=== PATIENT | male | born 1975 | race Caucasian/White ===

== ENCOUNTER 2022-01-24 00:02 | Emergency (ER) | payer SELFPAY ==
[~2022-01-24] VITALS: Ht 180.3 cm; Wt 122.5 kg
[2022-01-24] MEDS ORDERED: ONDANSETRON HCL INJ 2MG/ML 2ML 2 MG/ML VIAL IV STA (00:13)
[2022-01-24] MEDS ORDERED: Morphine 4mg INJECTION 4 MG/ML INJ IV ONE (00:15)
[2022-01-24] MEDS ORDERED: DICYCLOMINE HCL 20 MG/2 ML VIAL IM ONE (00:15)
[2022-01-24 00:27] LABS: BASOPHILS # (AUTO) 0.1 (0.0-0.1); BASOPHILS % 0.7 % (0.0-1.0); EOSINOPHILS # (AUTO) 0.3 (0.0-0.4); EOSINOPHILS % 3.2 % (0.0-6.0); HEMATOCRIT 44.4 % (38.2-49.6); HEMOGLOBIN 14.9 g/dL (14.0-18.0); LYMPHOCYTES % 31.2 % (18.0-39.1); MEAN CORPUSCULAR HEMOGLOBIN 31.1 pg (28-32); MEAN CORPUSCULAR HGB CONC 33.6 g/dL (31-35); MEAN CORPUSCULAR VOLUME 92.7 fL (81-99); MONOCYTES # (AUTO) 0.8 (0.2-0.8); MONOCYTES % 8.7 % (4.4-11.3); NEUTROPHILS # (AUTO) 5.3 (2.1-6.9); NEUTROPHILS % 55.7 % (38.7-80.0); PLATELET COUNT 206 x10e3/uL (140-360); RED BLOOD COUNT 4.79 x10e6/uL (4.3-5.7); RED CELL DISTRIBUTION WIDTH 12.8 % (11.7-14.4)
[2022-01-24 00:33] LABS: CLARITY,URINE CLEAR (CLEAR); COLOR,URINE YELLOW (YELLOW); KETONES,URINE NEGATIVE (NEGATIVE); LEUKOCYTE ESTERASE ,URINE NEGATIVE (NEGATIVE); NITRITE,URINE NEGATIVE (NEGATIVE); PROTEIN,URINE DIPSTICK NEGATIVE (NEGATIVE); URINE UROBILINOGEN 0.2 mg/dL (0.2 - 1)
[2022-01-24 00:36] LABS: BACTERIA,URINE FEW /HPF; EPITHELIAL CELLS,URINE RARE /LPF; WBC,URINE (MAN) 0-5 /HPF (0-5)
[2022-01-24 00:54] LABS: ALANINE AMINOTRANSFERASE 122 IU/L (0-55); ALBUMIN 3.7 g/dL (3.5-5.0); ALBUMIN/GLOBULIN RATIO 1.2 (0.8-2.0); ALKALINE PHOSPHATASE 75 IU/L (40-150); ANION GAP 15.4 mmol/L (8-16); BLOOD UREA NITROGEN 13 mg/dL (7-26); BUN/CREATININE RATIO 15 (6-25); CALCIUM 8.7 mg/dL (8.4-10.2); CARBON DIOXIDE 23 mmol/L (22-29); CHLORIDE 106 mmol/L (98-107); CREATINE KINASE 185 IU/L (30-200); CREATININE, SERUM 0.87 mg/dL (0.72-1.25); GLUCOSE 130 mg/dL (74-118); POTASSIUM 3.4 mmol/L (3.5-5.1); SODIUM 141 mmol/L (136-145)
[2022-01-24] MEDS ORDERED: HYDROCODON-ACE1 EAC9 PO (01:19)
[2022-01-24] MEDS ORDERED: NAPROSYN500 MG PO (01:19)
[2022-01-24] MEDS ORDERED: ONDANSETRON ODT4 MG PO (01:19)
[2022-01-24] MEDS ORDERED: DICYCLOMINE HCL20 MG PO (01:19)
== END 2022-01-24 01:45 | disposition home or self-care (01) ==
LOC: ER 00:04
DX: R10.11 Right upper quadrant pain (principal); R94.31 Abnormal electrocardiogram [ECG] [EKG]
CPT/HCPCS: 36415; 80053; 81001; 82550; 82553; 83690; 84484; 85025; 93005; 99284; C9113; J0500; J2270; J2405